=== PATIENT | male | born 1995 | race American Indian/Alaskan Native ===

== ENCOUNTER 2020-02-07 17:26 | Emergency (ER) | payer SELFPAY ==
[2020-02-07] MEDS ORDERED: dexAMETHasone 20 MG/5 ML VIAL IM ONE (19:58)
[2020-02-07] MEDS ORDERED: diphenhydrAMINE 25 MG CAP PO ONE (19:58)
[2020-02-07] MEDS ORDERED: FAMOTIDINE 20 MG TAB PO ONE (19:58)
--- NOTE | 2020-02-07 20:51 | Emergency Department Report ---
- General Chief complaint: Allergic Reaction Stated complaint: ALLERGIC REATION Time Seen by Provider: 02/07/20 19:37 Source: patient Mode of arrival: Ambulatory Limitations: No Limitations - History of Present Illness Initial comments: Patient is a 24-year-old male who presents emergency room with complaints of a diffuse rash that began 2 days ago. He states that it is itching and burning. He states that he has attempted to take Benadryl, another allergy medication, and used ointments but still cannot get relief from the itching and burning. He denies any known allergies at all. He denies any new soaps, detergents, lotions, foods, drinks, anything new that he can recall. He denies any past medical history or allergies to medications. - Related Data Previous Rx's Medication Instructions Recorded Last Taken Type Famotidine [Pepcid] 40 mg PO QHS #14 tablet 02/07/20 Unknown Rx diphenhydrAMINE [Benadryl CAP] 50 mg PO Q8HR PRN #20 capsule 02/07/20 Unknown Rx predniSONE [Deltasone] 40 mg PO QDAY 5 Days #10 tab 02/07/20 Unknown Rx Allergies Allergy/AdvReac Type Severity Reaction Status Date / Time No Known Allergies Allergy Unverified 02/07/20 17:28 Abscess Boil HPI - HPI Chief Complaint: Allergic Reaction Stated Complaint: ALLERGIC REATION Time Seen by Provider: 02/07/20 19:37 Home Medications: Previous Rx's Medication Instructions Recorded Last Taken Type Famotidine [Pepcid] 40 mg PO QHS #14 tablet 02/07/20 Unknown Rx diphenhydrAMINE [Benadryl CAP] 50 mg PO Q8HR PRN #20 capsule 02/07/20 Unknown Rx predniSONE [Deltasone] 40 mg PO QDAY 5 Days #10 tab 02/07/20 Unknown Rx Allergies/Adverse Reactions: Allergies Allergy/AdvReac Type Severity Reaction Status Date / Time No Known Allergies Allergy Unverified 02/07/20 17:28 ED Review of Systems ROS: Stated complaint: ALLERGIC REATION Other details as noted in HPI Comment: All other systems reviewed and negative ED Past Medical Hx - Past Medical History Previous Medical History?: No - Surgical History Past Surgical History?: No - Social History Smoking Status: Current Every Day Smoker Substance Use Type: None - Medications Home Medications: Home Medications Medication Instructions Recorded Confirmed Last Taken Type Famotidine [Pepcid] 40 mg PO QHS #14 tablet 02/07/20 Unknown Rx diphenhydrAMINE [Benadryl CAP] 50 mg PO Q8HR PRN #20 capsule 02/07/20 Unknown Rx predniSONE [Deltasone] 40 mg PO QDAY 5 Days #10 tab 02/07/20 Unknown Rx ED Physical Exam - General Limitations: No Limitations General appearance: alert, in no apparent distress - Head Head exam: Present: atraumatic, normocephalic - Eye Eye exam: Present: normal appearance - ENT ENT exam: Present: normal orophraynx, mucous membranes moist, other (no angioedema, uvula is midline, no uvular edema, no uvular deviation, no facial edema) - Respiratory Respiratory exam: Present: normal lung sounds bilaterally. Absent: respiratory distress, wheezes, rales, rhonchi, stridor, chest wall tenderness, accessory mu scle use, decreased breath sounds, prolonged expiratory - Cardiovascular Cardiovascular Exam: Present: regular rate, normal rhythm, normal heart sounds. Absent: systolic murmur, diastolic murmur, rubs, gallop - Neurological Exam Neurological exam: Present: alert, oriented X3 - Psychiatric Psychiatric exam: Present: normal affect, normal mood - Skin Skin exam: Present: warm, dry, urticaria (present on the BUE and the back and flanks) ED Course Vital Signs 02/07/20 02/07/20 17:32 21:02 Temperature 98.5 F Pulse Rate 99 H 57 L Respiratory 15 18 Rate Blood Pressure 120/89 114/67 [Left] O2 Sat by Pulse 98 99 Oximetry ED Medical Decision Making - Medical Decision Making Patient is a 24-year-old male who presents emergency room with complaints of a diffuse rash that began 2 days ago. He states that it is itching and burning. He states that he has attempted to take Benadryl, another allergy medication, and used ointments but still cannot get relief from the itching and burning. He denies any known allergies at all. He denies any new soaps, detergents, lotions, foods, drinks, anything new that he can recall. He denies any past medical history or allergies to medications. Vitals are normal. On exam: no angioedema, uvula is midline, no uvular edema, no uvular deviation, no facial edema, urticaria present on the BUE and the back and flanks. No respiratory distress, no angioedema, no stridor. Patient given dexamethasone IM, p.o. Benadryl, p.o. Pepcid and symptoms improved and he states the itching improved. Patient given prescription for Pepcid, Benadryl, prednisone. Discussed with patient that he would need to follow-up with a primary care doctor to see if he needed referral to an agricultural education professor. advised pt please take medication as prescribed. May continue to use an anti-itch ointment. Follow-up with your primary care doctor. Return to the emergency room for any new or worsening symptoms. Critical care attestation.: If time is entered above; I have spent that time in minutes in the direct care of this critically ill patient, excluding procedure time. ED Disposition Clinical Impression: Urticaria Disposition: - TO HOME OR SELFCARE Is pt being admited?: No Does the pt Need Aspirin: No Condition: Stable Instructions: Urticaria (ED) Additional Instructions: Please take medication as prescribed. May continue to use an anti-itch ointment. Follow-up with your primary care doctor. Return to the emergency room for any new or worsening symptoms. Prescriptions: Famotidine [Pepcid] 40 mg PO QHS #14 tablet diphenhydrAMINE [Benadryl CAP] 50 mg PO Q8HR PRN #20 capsule PRN Reason: itching/rash predniSONE [Deltasone] 40 mg PO QDAY 5 Days #10 tab Referrals: SHERWIN SAXENA MD [Staff Physician] - 3-5 Days [facility] [Outside] - 3-5 Days [facility] [Outside] - 3-5 Days [facility] [Provider Group] - 3-5 Days Time of Disposition: 20:50 Print Language: TAJIK
[2020-02-07 21:03] VITALS: BP 114/67
== END 2020-02-07 21:03 | disposition home or self-care (01) ==
LOC: ED 17:26
DX: L50.9 Urticaria, unspecified (principal); F17.200 Nicotine dependence, unspecified, uncomplicated; Z79.899 Other long term (current) drug therapy
CPT/HCPCS: 96372; 99282; J1100

== ENCOUNTER 2020-08-17 23:52 | Emergency (ER) | payer OTHER ==
[2020-08-18 01:49] VITALS: BP 127/69
--- NOTE | 2020-08-18 02:23 | Cat Scan Report ---
CT cervical spine without contrast INDICATION: M.Dora.A., now with neck pain. TECHNIQUE: Axial imaging performed through the cervical without the use of contrast. Sagittal and c oronal reconstructed images were also reviewed. All CT scans at this location are performed using CT dose reduction for ALARA by means of automated exposure control. COMPARISON: None FINDINGS: Alignment: Spinal alignment is normal. Bones: There is no acute osseous abnormality. Mild multilevel discogenic DJD is present. Soft tissues: No acute or significant incidental soft tissue abnormality. IMPRESSION: No acute abnormality. Signer Name: Semaj Vogt MD Signed: 08/18/2020 2:18 AM Workstation Name: [id number]
[2020-08-18] MEDS ORDERED: IBUPROFEN 600 MG TAB PO ONE (03:46)
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
== END 2020-08-18 05:17 | disposition home or self-care (01) ==
LOC: ED 23:52
DX: M62.830 Muscle spasm of back (principal); F17.200 Nicotine dependence, unspecified, uncomplicated; Z98.890 Other specified postprocedural states; Z79.1 Long term (current) use of non-steroidal anti-inflammatories (NSAID); Z79.899 Other long term (current) drug therapy; V89.2XXA Person injured in unspecified motor-vehicle accident, traffic, initial encounter; Y93.89 Activity, other specified; Y92.410 Unspecified street and highway as the place of occurrence of the external cause; Y99.8 Other external cause status
CPT/HCPCS: 72125